=== PATIENT | male | born 2005 | race Hispanic/Latino ===

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

== ENCOUNTER 2023-12-03 07:22 | Emergency (ER) | payer MEDICAID, OTHER ==
[2023-12-03] MEDS ORDERED: Ketorolac Tromethamine 30 MG (1 mL) VIAL ONE (07:44)
[2023-12-03] MEDS ORDERED: Ondansetron ODT 4 MG TAB ONE (07:45)
[2023-12-03 08:47] LABS: Influenza A by NAA Not Detected (NotDetected); Influenza B by NAA Not Detected (NotDetected); SARS-CoV-2 NAA Rapid Test Not Detected (NotDetected)
== END 2023-12-03 08:09 | disposition home or self-care (01) ==
LOC: CSHERS 07:22
DX: B34.9 Viral infection, unspecified (principal); J45.909 Unspecified asthma, uncomplicated; Z55.6 Problems related to health literacy
CPT/HCPCS: 96372; 99284; J1885; Q0162

== ENCOUNTER 2023-12-07 16:48 | Emergency (ER) | payer MEDICAID ==
[2023-12-07] MEDS ORDERED: AFRIN NASAL MIST 15 ML BOT ONE (18:19)
[2023-12-07] MEDS ORDERED: Acetaminophen 500 MG TAB ONE (18:20)
== END 2023-12-07 19:55 | disposition home or self-care (01) ==
LOC: CSHERS 16:48
DX: B34.9 Viral infection, unspecified (principal)
CPT/HCPCS: 99283

== ENCOUNTER 2023-12-11 00:20 | Emergency (ER) | payer MEDICAID, OTHER ==
[2023-12-11] MEDS ORDERED: Dexamethasone 10 MG/ML VIAL ONE (01:56)
== END 2023-12-11 02:21 | disposition home or self-care (01) ==
LOC: CSHERS 00:20
DX: J06.9 Acute upper respiratory infection, unspecified (principal); F17.290 Nicotine dependence, other tobacco product, uncomplicated
CPT/HCPCS: 71045; J1100